=== PATIENT | male | born 1965 | race Caucasian/White ===

== ENCOUNTER 2022-10-09 11:51 | Emergency (ER) | payer MEDICAID ==
[~2022-10-09] VITALS: Ht 177.8 cm; Wt 75.0 kg
[2022-10-09] MEDS ORDERED: LIDOCAINE HCL/PF 1% 10 MG/ML 5ML VIAL INFIL ONE (12:15)
[2022-10-09] MEDS ORDERED: TETANUS, DIPHTHERIA, PERTUSSIS VAC/PF 0.5ML (>10YR OLD) IM ONE (12:15)
[2022-10-09] MEDS ORDERED: BACITRACIN ZINC OINT UDPKT TOP ONE (12:15)
[2022-10-09] MEDS ORDERED: CEFTRIAXONE SODIUM 1 G/VIAL IM ONE ×3 (12:15→12:30)
[2022-10-09] MEDS ORDERED: HYDROCODONE/ACETAMINOPHEN 5/325MG TABLET PO ONE (12:15)
[2022-10-09] MEDS: WATER FOR IRRIGATION,STERILE 1,000 ML IRRIG.SOLN IR NR ×2 (12:52→15:18)
[2022-10-09] MEDS ORDERED: CEPH500C2 MT (13:05)
[2022-10-09] MEDS ORDERED: ACET-2708 MT (13:05)
[2022-10-09] MEDS ORDERED: BO1 TP (13:05)
[2022-10-09 14:16] VITALS: BP 154/91
== END 2022-10-09 15:21 | disposition home or self-care (01) ==
LOC: ER 11:55
DX: S68.121A Partial traumatic metacarpophalangeal amputation of left index finger, initial encounter (principal); S60.132A Contusion of left middle finger with damage to nail, initial encounter; I10 Essential (primary) hypertension; W31.89XA Contact with other specified machinery, initial encounter; Y93.89 Activity, other specified; Y92.89 Other specified places as the place of occurrence of the external cause; Y99.8 Other external cause status
CPT/HCPCS: 73140; 90471; 90715; 96372; 99284; J0696; Z7610